=== PATIENT | male | born 1970 | race Caucasian/White ===

== ENCOUNTER 2018-06-21 19:17 | Emergency (ER) | payer MEDICAID ==
[2018-06-21] MEDS: ONDANSETRON (ODT) 4 MG TAB ODT (19:59)
[2018-06-21] MEDS: HYDROCODONE/APAP (5/325) TAB PO (19:59)
[2018-06-21 22:03] LABS: ADD MAN DIFF? NO
[2018-06-21 22:04] LABS: BASOPHILS % 0.4 % (0.0-2.0); EOSINOPHILS % 0.5 % (0.0-7.0); HEMATOCRIT 43.4 % (42.0-52.0); HEMOGLOBIN 14.7 g/dl (14.0-18.0); LYMPHOCYTES # 1.7 10^3/ul (0.8-2.9); MEAN CORPUSCULAR HGB CONC 33.9 g/dl (32.0-37.0); MEAN CORPUSCULAR VOLUME 88.6 fl (82.0-101.0); MONOCYTE # 0.6 10^3/ul (0.3-0.9); MONOCYTES % 7.6 % (0.0-11.0); NEUTROPHIL # 5.6 10^3/ul (1.6-7.5); NEUTROPHILS % 70.4 % (39.0-77.0); PLATELET COUNT 197 10^3/UL (140-415); RED CELL DISTRIBUTION WIDTH 13.4 % (11.5-14.5)
[2018-06-21] MEDS: HYDROmorphONE 1 MG/ML SYG IV (22:05)
[2018-06-21] MEDS: SOD CHLORIDE 0.9% 1,000 ML IV (22:05)
[2018-06-21 22:18] LABS: INR 0.94; PROTIME 12.7 Sec (11.9-14.9)
[2018-06-21 22:19] LABS: PARTIAL THROMBOPLASTIN TIME 30.5 Sec (23.0-35.0)
[2018-06-21 22:26] LABS: ALANINE AMINOTRANSFERASE 31 IU/L (13-69); ALBUMIN 4.3 g/dl (3.3-4.9); ALBUMIN/GLOBULIN RATIO 1.38; ALKALINE PHOSPHATASE 81 IU/L (42-121); ANION GAP 9 (5-13); ASPARTATE AMINO TRANSFERASE 38 IU/L (15-46); BILIRUBIN,INDIRECT 1.4 mg/dl (0-1.1); BILIRUBIN,TOTAL 1.4 mg/dl (0.2-1.3); BLOOD UREA NITROGEN 14 mg/dl (7-20); CALCIUM 9.9 mg/dl (8.4-10.2); CARBON DIOXIDE 26 mmol/L (21-31); CHLORIDE 104 mmol/L (97-110); CREATININE 0.64 mg/dl (0.61-1.24); Estimated GFR > 60 mL/min (>60); GLUCOSE 104 mg/dl (70-220); POTASSIUM 3.9 mmol/L (3.5-5.1); SODIUM 139 mmol/L (135-144); TOTAL PROTEIN 7.4 g/dl (6.1-8.1)
[2018-06-21 22:37] LABS: TROPONIN-I < 0.012 ng/ml (0.000-0.120)
== END 2018-06-22 01:15 | disposition short-term general hospital (02) ==
LOC: FTE 06-22 01:15
DX: S31.30XA Unspecified open wound of scrotum and testes, initial encounter (principal); S02.32XA Fracture of orbital floor, left side, initial encounter for closed fracture; S00.12XA Contusion of left eyelid and periocular area, initial encounter; S20.211A Contusion of right front wall of thorax, initial encounter; S02.2XXA Fracture of nasal bones, initial encounter for closed fracture; V09.20XA Pedestrian injured in traffic accident involving unspecified motor vehicles, initial encounter
CPT/HCPCS: 36415; 70450; 70480; 71046; 72125; 76870; 80053; 84484; 85025; 85610; 85730; 96360; 96361; 99285-25